=== PATIENT | female | born 1960 ===

== ENCOUNTER 2021-02-05 18:54 | Emergency (ER) | payer OTHER | END 2021-02-05 22:35 | disposition home or self-care (01) | LOC: ER 18:54 | DX: S00.03XA Contusion of scalp, initial encounter (principal); M54.5 Low back pain; Z23 Encounter for immunization; V49.40XA Driver injured in collision with unspecified motor vehicles in traffic accident, initial encounter; Y92.410 Unspecified street and highway as the place of occurrence of the external cause ==

== ENCOUNTER 2021-07-18 07:33 | Day surgery (SDC) | payer OTHER ==
[~2021-07-18 07:33] MED LIST: CYCL10 PO; HYDRA25 PO; IBUP600 PO
[2021-07-23 10:15] LABS: Performing Lab SYMBIODX; Test Name HER2 FISH
== END 2021-07-18 23:03 | disposition home or self-care (01) ==
LOC: MOI MAM 07:33 → MOI US 07-30 08:00
PROVIDERS: Pathology Clinical Pathology/Laboratory Medicine
DX: C50.911 Malignant neoplasm of unspecified site of right female breast (principal); Z17.0 Estrogen receptor positive status [ER+]
CPT/HCPCS: 19083; 77065; A4648

== ENCOUNTER → 2024-02-02 | Outpatient (CLI) | payer OTHER ==
[~2024-02-02] MED LIST changes: +CEPH500 PO; +GABA100 PO; +IBU600 MG PO; +POTCHL20ER PO; +[UNRECOGNIZED DRUG - OTHER]
[2024-02-02 09:36] LABS: Hematocrit 37.5 % (33.0-51.0); Hemoglobin 12.7 g/dL (11.5-16.0); Mean Corpuscular HGB 30.5 pg (26.0-34.0); Mean Corpuscular HGB Conc 33.9 g/dL (31.5-36.5); Mean Corpuscular Volume 90 fL (80-100); Mean Platelet Volume 9.9 fL (9.1-12.4); Platelet Count 158 K/mm3 (150-400); RDW Coefficient Variation 13.7 % (11.7-14.2); RDW Standard Deviation 44.9 fL (35.1-46.3); Red Blood Cell Count 4.17 M/mm3 (3.80-5.20); White Blood Cell Count 9.29 K/mm3 (4.00-11.30)
[2024-02-02 09:54] LABS: BASOPHILS PERCENT MAN 0 % (0-2); EOSINOPHILS PERCENT MAN 0 % (0-6); LYMPHOCYTES % ATYPICAL MANUAL 1 % (0-0); LYMPHOCYTES ABSOLUTE MAN 1.48 K/mm3 (0.84-5.20); LYMPHOCYTES PERCENT MAN 15 % (21-46); MONOCYTES ABSOLUTE MAN 0.18 K/mm3 (0.16-1.47); MONOCYTES PERCENT MAN 2 % (4-13); NEUTROPHILS ABSOLUTE MAN 7.61 K/mm3 (1.96-9.15); SEG NEUTROPHILS PERCENT MAN 82 % (41-73); TOTAL CELLS COUNTED 100
[2024-02-02 10:03] LABS: Albumin, Blood 3.7 g/dL (3.4-5.0); Albumin/Globulin Ratio 0.8 (0.8-1.8); Bilirubin, Total 0.7 mg/dL (0.1-1.0); Bun/Creatinine Ratio 19.1 (12.0-20.0); C-REACTIVE PROTEIN, EXT RANGE 10.8 mg/dL (0.000-0.300); Calcium, Blood 8.6 mg/dL (8.5-10.1); Creatinine, Blood 0.94 mg/dL (0.40-1.00); Free Thyroxine 1.34 ng/dL (0.70-1.60); Globulin, Blood 4.5 g/dL (2.2-4.0); Magnesium, Blood 2.3 mg/dL (1.6-2.4); Potassium, Blood 2.9 mmol/L (3.5-5.5); Thyroid Stimulating Hormone 2.96 uIU/mL (0.360-4.800); Total Protein, Blood 8.2 g/dL (6.4-8.2)
[2024-02-04 18:28] LABS: ANA PATTERN Speckled; ANTINUCLEAR AB (ANA),HEP-2,IGG Detected (<1:80)
== END ==
LOC: LAB 08:55 → LAB SHORT 08:55
PROVIDERS: Nurse Practitioner Family
DX: M62.830 Muscle spasm of back (principal); M25.559 Pain in unspecified hip; R10.9 Unspecified abdominal pain; M25.50 Pain in unspecified joint; M62.81 Muscle weakness (generalized)
CPT/HCPCS: 80053; 83735; 84439; 84443; 85007; 85027; 86039; 86140; 86430; 87077; 87086; 87186

== ENCOUNTER 2024-02-03 01:01 | Emergency (ER) | payer OTHER ==
[~2024-02-03] VITALS: Ht 167.6 cm; Wt 113.4 kg
[~2024-02-03 01:01] MED LIST changes: -CEPH500 PO; -GABA100 PO; -IBU600 MG PO; -POTCHL20ER PO; -[UNRECOGNIZED DRUG - OTHER]
[2024-02-03] MEDS ORDERED: Ketorolac Tromethamine 15mg Vial IV ONE (01:15)
[2024-02-03] MEDS ORDERED: NS 1,000 ML IV SCH (01:15)
[2024-02-03] MEDS ORDERED: [UNRECOGNIZED DRUG - OTHER] (01:18)
[2024-02-03] MEDS ORDERED: POTCHL20ER PO (01:18)
[2024-02-03] MEDS ORDERED: GABA100 PO (01:19)
[2024-02-03] MEDS ORDERED: CEPH500 PO (01:19)
[2024-02-03 01:40] LABS: BASOPHILS ABSOLUTE AUTO 0.03 K/mm3 (0.00-0.23); BASOPHILS PERCENT AUTO 0 % (0-2); EOSINOPHILS ABSOLUTE AUTO 0.08 K/mm3 (0.00-0.68); EOSINOPHILS PERCENT AUTO 1 % (0-6); Hematocrit 34.2 % (33.0-51.0); Hemoglobin 11.7 g/dL (11.5-16.0); IMMATURE GRAN ABSOLUTE AUTO 0.02 K/mm3 (0.00-0.10); IMMATURE GRAN PERCENT AUTO 0 % (0-1); LYMPHOCYTES ABSOLUTE AUTO 0.68 K/mm3 (0.84-5.20); LYMPHOCYTES PERCENT AUTO 10 % (21-46); MONOCYTES PERCENT AUTO 2 % (4-13); Mean Corpuscular HGB 30.4 pg (26.0-34.0); Mean Corpuscular HGB Conc 34.2 g/dL (31.5-36.5); Mean Corpuscular Volume 89 fL (80-100); Mean Platelet Volume 9.4 fL (9.1-12.4); NEUTROPHILS ABSOLUTE AUTO 5.78 K/mm3 (1.96-9.15); NEUTROPHILS PERCENT AUTO 86 % (41-73); Platelet Count 128 K/mm3 (150-400); RDW Coefficient Variation 13.5 % (11.7-14.2); RDW Standard Deviation 43.7 fL (35.1-46.3); Red Blood Cell Count 3.85 M/mm3 (3.80-5.20); White Blood Cell Count 6.69 K/mm3 (4.00-11.30)
[2024-02-03 01:53] LABS: Source, Urine Clean Catch
[2024-02-03 01:55] LABS: Blood, Urine 3+ (Neg); Glucose Qualitative, Urine Neg (Neg); Ketones, Urine 1+ (Neg); Leukocyte Esterase, Urine 3+ (Neg); Nitrite, Urine Pos (Neg); Protein, Urine 1+ (Neg); Specific Gravity, Urine 1.015 (1.003-1.022); Urobilinogen, Urine 2+ (Normal)
[2024-02-03 01:59] LABS: Albumin, Blood 3.3 g/dL (3.4-5.0); Albumin/Globulin Ratio 0.8 (0.8-1.8); Bun/Creatinine Ratio 19.6 (12.0-20.0); Calcium, Blood 8.3 mg/dL (8.5-10.1); Creatinine, Blood 1.07 mg/dL (0.40-1.00); Globulin, Blood 4.1 g/dL (2.2-4.0); Potassium, Blood 2.9 mmol/L (3.5-5.5); Total Protein, Blood 7.4 g/dL (6.4-8.2)
[2024-02-03 02:02] LABS: Appearance, Urine Hazy (Clear); Bilirubin, Urine 2+ (Neg)
[2024-02-03 02:03] LABS: Bacteria Mod /hpf; Red Blood Cells, Urine 0-2 /hpf (0-2); Squamous Epithelial Cells Mod /hpf (Few); White Blood Cells, Urine 25-50 /hpf (0-5)
[2024-02-03 02:04] LABS: Color, Urine Amber (P-Yellow)
[2024-02-03 02:14] LABS: Magnesium, Blood 2.2 mg/dL (1.6-2.4)
[2024-02-03 05:00] VITALS: BP 101/71
[2024-02-03] MEDS ORDERED: IBU600 MG PO (05:11)
[2024-02-03] MEDS ORDERED: CYCL10 PO (05:11)
[2024-02-03] MEDS ORDERED: HYDROcodone 5-APAP 325 TAB PO ONE (05:20)
== END 2024-02-03 05:27 | disposition home or self-care (01) ==
LOC: ER 01:01
PROVIDERS: Emergency Medicine
DX: N39.0 Urinary tract infection, site not specified (principal); E87.6 Hypokalemia; M54.50 Low back pain, unspecified; I10 Essential (primary) hypertension; Z79.899 Other long term (current) drug therapy; Z88.8 Allergy status to other drugs, medicaments and biological substances
CPT/HCPCS: 74176; 80053; 81001; 83605; 83735; 85025; 87077; 87086; 87186; 96361; 96374; 99285-25; A9270; J1885; J7030

== ENCOUNTER 2024-02-06 22:33 | Emergency (ER) | payer OTHER ==
[~2024-02-06] VITALS: Ht 170.2 cm; Wt 113.4 kg
[~2024-02-06 22:33] MED LIST changes: +CEPH500 PO; +GABA100 PO; +IBU600 MG PO; +POTCHL20ER PO; +[UNRECOGNIZED DRUG - OTHER]
[2024-02-06 22:48] VITALS: BP 180/78
[2024-02-06 23:19] LABS: Source, Urine Clean Catch
[2024-02-06 23:20] LABS: BASOPHILS ABSOLUTE AUTO 0.07 K/mm3 (0.00-0.23); BASOPHILS PERCENT AUTO 1 % (0-2); EOSINOPHILS ABSOLUTE AUTO 0.17 K/mm3 (0.00-0.68); EOSINOPHILS PERCENT AUTO 1 % (0-6); Hematocrit 33.1 % (33.0-51.0); Hemoglobin 11.4 g/dL (11.5-16.0); IMMATURE GRAN ABSOLUTE AUTO 0.22 K/mm3 (0.00-0.10); IMMATURE GRAN PERCENT AUTO 2 % (0-1); LYMPHOCYTES PERCENT AUTO 11 % (21-46); MONOCYTES ABSOLUTE AUTO 0.85 K/mm3 (0.16-1.47); MONOCYTES PERCENT AUTO 7 % (4-13); Mean Corpuscular HGB 30.7 pg (26.0-34.0); Mean Corpuscular HGB Conc 34.4 g/dL (31.5-36.5); Mean Corpuscular Volume 89 fL (80-100); Mean Platelet Volume 9.2 fL (9.1-12.4); NEUTROPHILS ABSOLUTE AUTO 9.75 K/mm3 (1.96-9.15); NEUTROPHILS PERCENT AUTO 78 % (41-73); Platelet Count 191 K/mm3 (150-400); RDW Standard Deviation 45.2 fL (35.1-46.3); Red Blood Cell Count 3.71 M/mm3 (3.80-5.20); White Blood Cell Count 12.46 K/mm3 (4.00-11.30)
[2024-02-06 23:36] LABS: Bilirubin, Urine Neg (Neg); Blood, Urine 2+ (Neg); Glucose Qualitative, Urine Neg (Neg); Ketones, Urine Neg (Neg); Leukocyte Esterase, Urine Neg (Neg); Nitrite, Urine Pos (Neg); Protein, Urine Neg (Neg); Specific Gravity, Urine 1.015 (1.003-1.022); Urobilinogen, Urine 1+ (Normal)
[2024-02-06 23:43] LABS: Appearance, Urine Clear (Clear); Bacteria Rare /hpf; Color, Urine Orange (P-Yellow); Red Blood Cells, Urine 0-2 /hpf (0-2); Squamous Epithelial Cells Rare /hpf (Few); White Blood Cells, Urine 0-2 /hpf (0-5)
[2024-02-06 23:49] LABS: Albumin, Blood 2.8 g/dL (3.4-5.0); Albumin/Globulin Ratio 0.6 (0.8-1.8); Bilirubin, Total 0.4 mg/dL (0.1-1.0); Bun/Creatinine Ratio 24.8 (12.0-20.0); Calcium, Blood 8.7 mg/dL (8.5-10.1); Creatinine, Blood 1.05 mg/dL (0.40-1.00); Globulin, Blood 4.9 g/dL (2.2-4.0); Potassium, Blood 3.8 mmol/L (3.5-5.5); Total Protein, Blood 7.7 g/dL (6.4-8.2)
[2024-02-06] MEDS ORDERED: HYDROcodone 5-APAP 325 TAB PO ONE (23:55)
[2024-02-06] MEDS ORDERED: Ketorolac Tromethamine 30mg Vial IV ONE (23:55)
[2024-02-07] MEDS ORDERED: RX Prepack 6 Tabs Oxycodone 5mg UD ONE (00:20)
== END 2024-02-07 00:33 | disposition home or self-care (01) ==
LOC: ER 22:33
PROVIDERS: Physician Assistant
DX: N39.0 Urinary tract infection, site not specified (principal); I10 Essential (primary) hypertension; Z79.899 Other long term (current) drug therapy; Z88.8 Allergy status to other drugs, medicaments and biological substances
CPT/HCPCS: 80053; 81001; 85025; 87086; 96374; 99284-25; A9270; J1885

== ENCOUNTER → 2024-02-09 | Outpatient (CLI) | payer OTHER | LOC: LAB SHORT 09:55 → LAB 09:55 | DX: R30.0 Dysuria (principal) | CPT/HCPCS: 87086 ==

== ENCOUNTER 2025-03-06 11:49 | Day surgery (SDC) | payer OTHER ==
[~2025-03-06] VITALS: Ht 170.2 cm; Wt 110.3 kg
[~2025-03-06 11:49] MED LIST changes: +DYAZIDE 37.5-21 EACH
[2025-03-06] MEDS ORDERED: LOSA25 (12:22)
[2025-03-06 14:39] VITALS: BP 135/93
== END 2025-03-06 14:20 | disposition home or self-care (01) ==
LOC: ORSCSDS 11:49
PROVIDERS: Specialist
PROC: 0DB58ZX Excision of Esophagus, Via Natural or Artificial Opening Endoscopic, Diagnostic (ICD-10-PCS; principal; 2025-03-06 13:30)
PROC: 0DB68ZX Excision of Stomach, Via Natural or Artificial Opening Endoscopic, Diagnostic (ICD-10-PCS; principal; 2025-03-06 13:30)
DX: K22.10 Ulcer of esophagus without bleeding (principal); K21.00 Gastro-esophageal reflux disease with esophagitis, without bleeding; K44.9 Diaphragmatic hernia without obstruction or gangrene; I10 Essential (primary) hypertension; Z86.0101 Personal history of adenomatous and serrated colon polyps; R10.30 Lower abdominal pain, unspecified; Z79.899 Other long term (current) drug therapy
CPT/HCPCS: 88305; 88342; J2704; J7120